=== PATIENT | male | born 1955 | race Caucasian/White ===

== ENCOUNTER 2017-12-05 15:33 | Inpatient (IN) | payer OTHER ==
[~2017-12-05] VITALS: Ht 182.9 cm; Wt 131.4 kg
[2017-12-21 09:16] VITALS: BP 150/66; PULSE 60; TEMP 97.7
[2017-12-21 10:09] LABS: BASO % 0.5 % (0.0-2.0); EOS # 0.1 (0.0-0.7); EOS % 1.8 % (0-4.0); GRAN # 3.9 (1.4-6.5); HEMATOCRIT 37.2 % (42.0-52.0); HEMOGLOBIN 12.8 g/dl (13.5-18.0); LYMPH # 1.5 (1.2-3.4); LYMPH % 23.8 % (20.0-51.0); MEAN CELL VOLUME 91 fl (80.0-100.0); MEAN CORPUSCULAR HEMOGLOBIN 31 pg (27.0-31.0); MEAN CORPUSCULAR HGB CONC 34 g/dl (33.0-37.0); MEAN PLATELET VOLUME 9.9 fl (7.4-10.4); MONO # 0.6 (0.1-0.6); MONO % 9.7 % (1.7-9.3); PLATELET COUNT 233 K/mm3 (130-400); RED BLOOD COUNT 4.07 M/mm3 (4.20-5.60)
[2017-12-21 10:10] LABS: INR 1.3 (0.8-3.0); PROTHROMBIN TIME 14.7 SECONDS (9.7-12.8)
[2017-12-21 10:16] LABS: ALBUMIN 4.1 gm/dL (3.5-5.0); BILIRUBIN,TOTAL 0.9 mg/dL (0.0-1.0); CREATININE, serum 0.72 mg/dL (0.66-1.25); MAGNESIUM 1.9 mg/dL (1.6-2.3); POTASSIUM 4.5 mmol/L (3.4-5.0); TOTAL PROTEIN 7.3 gm/dL (6.4-8.2)
[2017-12-21] MEDS ORDERED: TOPROL XL 25MG25 MG (10:19)
[2017-12-21] MEDS ORDERED: TOPROL XL 25MG25 MG PO (10:20)
[2017-12-21] MEDS ORDERED: CRESTOR20 MG PO (10:22)
[2017-12-21] MEDS ORDERED: ELIQUIS 5MG PO (10:22)
[2017-12-21] MEDS ORDERED: HYDRODIURIL50 MG PO (10:24)
[2017-12-21 11:43] VITALS: BP 129/69; PULSE 57; TEMP 97.4
[2017-12-21 16:43] VITALS: BP 120/74; PULSE 53; TEMP 97.9
[2017-12-21 20:53] VITALS: BP 120/71; PULSE 51; TEMP 97.6
[2017-12-22] VITALS (7 sets, daily range): BP systolic 94–114; BP diastolic 50–69; PULSE 47–55; TEMP 97.4–97.9
[2017-12-22 07:31] LABS: BASO % 0.7 % (0.0-2.0); EOS # 0.2 (0.0-0.7); EOS % 2.8 % (0-4.0); GRAN # 3.3 (1.4-6.5); GRAN % 58.2 % (42.2-75.2); HEMATOCRIT 37.7 % (42.0-52.0); HEMOGLOBIN 12.9 g/dl (13.5-18.0); LYMPH # 1.6 (1.2-3.4); LYMPH % 28.8 % (20.0-51.0); MEAN CELL VOLUME 92 fl (80.0-100.0); MEAN CORPUSCULAR HEMOGLOBIN 32 pg (27.0-31.0); MEAN CORPUSCULAR HGB CONC 34 g/dl (33.0-37.0); MEAN PLATELET VOLUME 10.2 fl (7.4-10.4); MONO # 0.5 (0.1-0.6); MONO % 9.1 % (1.7-9.3); PLATELET COUNT 226 K/mm3 (130-400); REDCELL DISTRIBUTION WIDTH-CV 13.2 % (11.5-14.5)
[2017-12-22 07:57] LABS: CALCIUM 8.8 mg/dL (8.4-10.2); CREATININE, serum 0.67 mg/dL (0.66-1.25); MAGNESIUM 2.1 mg/dL (1.6-2.3); POTASSIUM 4.2 mmol/L (3.4-5.0)
[2017-12-23 03:57] VITALS: BP 106/72; PULSE 44; TEMP 97.6
[2017-12-23 07:41] LABS: BASO % 0.6 % (0.0-2.0); EOS # 0.2 (0.0-0.7); EOS % 2.6 % (0-4.0); GRAN # 3.9 (1.4-6.5); GRAN % 60.2 % (42.2-75.2); HEMOGLOBIN 13.9 g/dl (13.5-18.0); LYMPH # 1.8 (1.2-3.4); LYMPH % 27.8 % (20.0-51.0); MEAN CELL VOLUME 91 fl (80.0-100.0); MEAN CORPUSCULAR HEMOGLOBIN 31 pg (27.0-31.0); MEAN CORPUSCULAR HGB CONC 34 g/dl (33.0-37.0); MEAN PLATELET VOLUME 10.4 fl (7.4-10.4); MONO # 0.6 (0.1-0.6); MONO % 8.6 % (1.7-9.3); PLATELET COUNT 262 K/mm3 (130-400); REDCELL DISTRIBUTION WIDTH-CV 13.1 % (11.5-14.5)
[2017-12-23 07:54] LABS: CALCIUM 9.1 mg/dL (8.4-10.2); CREATININE, serum 0.71 mg/dL (0.66-1.25); MAGNESIUM 2.1 mg/dL (1.6-2.3); POTASSIUM 4.2 mmol/L (3.4-5.0)
[2017-12-23 08:16] VITALS: BP 111/65; PULSE 51; TEMP 98.2
[2017-12-23] MEDS ORDERED: BETAPACE 80MG80 MG PO (10:57)
== END 2017-12-23 11:50 | disposition home or self-care (01) | DRG 310 ==
LOC: MEDICAL 12-21 07:53
PROVIDERS: Internal Medicine Cardiovascular Disease
DX: I48.0 Paroxysmal atrial fibrillation (principal); I25.10 Atherosclerotic heart disease of native coronary artery without angina pectoris; Z79.01 Long term (current) use of anticoagulants

== ENCOUNTER 2019-03-26 09:34 | Day surgery (SDC) | payer OTHER ==
[~2019-03-26] VITALS: Ht 180.3 cm; Wt 132.0 kg
[~2019-03-26 09:34] MED LIST: BETAPACE 80MG80 MG PO; CRESTOR20 MG PO; ELIQUIS 5MG PO; HYDRODIURIL50 MG PO; TOPROL XL 25MG25 MG; TOPROL XL 25MG25 MG PO
[2019-03-26] MEDS ORDERED: MICARDIS HCT 251 TAB PO (09:58)
[2019-03-26 10:02] VITALS: BP 120/76; PULSE 53; TEMP 98.3
[2019-03-26] MEDS ORDERED: BETAPACE240 MG PO (10:16)
--- NOTE | 2019-03-26 10:30 | NUR ---
CV cancelled per Dr. Gipson, pt is in SR. Pt discharged per ambulation with .
== END 2019-03-26 10:31 | disposition home or self-care (01) ==
LOC: COL.CAR 09:34
DX: I48.0 Paroxysmal atrial fibrillation (principal); Z53.8 Procedure and treatment not carried out for other reasons; I08.3 Combined rheumatic disorders of mitral, aortic and tricuspid valves; I10 Essential (primary) hypertension; E78.2 Mixed hyperlipidemia; Z79.01 Long term (current) use of anticoagulants

== ENCOUNTER 2019-04-02 13:35 | Emergency (ER) | payer OTHER ==
[~2019-04-02] VITALS: Ht 180.3 cm; Wt 131.4 kg
[~2019-04-02 13:35] MED LIST changes: +BETAPACE240 MG PO; +MICARDIS HCT 251 TAB PO
[2019-04-02 14:12] VITALS: TEMP 98.8
[2019-04-02 15:03] LABS: BASO # 0.1 (0.0-0.2); BASO % 0.3 % (0.0-2.0); EOS % 0.1 % (0-4.0); GRAN # 16.3 (1.4-6.5); GRAN % 82.2 % (42.2-75.2); HEMATOCRIT 41.7 % (42.0-52.0); LYMPH # 1.8 (1.2-3.4); LYMPH % 9.1 % (20.0-51.0); MEAN CELL VOLUME 93 fl (80.0-100.0); MEAN CORPUSCULAR HEMOGLOBIN 31 pg (27.0-31.0); MEAN CORPUSCULAR HGB CONC 34 g/dl (33.0-37.0); MEAN PLATELET VOLUME 11.5 fl (7.4-10.4); MONO # 1.5 (0.1-0.6); MONO % 7.4 % (1.7-9.3); PLATELET COUNT 216 K/mm3 (130-400); RED BLOOD COUNT 4.49 M/mm3 (4.20-5.60); REDCELL DISTRIBUTION WIDTH-CV 13.2 % (11.5-14.5)
[2019-04-02 15:04] LABS: COLLECTION METHOD CLEAN CATCH
[2019-04-02 15:07] LABS: ALANINE AMINOTRANSFERASE 23 U/L (21-72); ALBUMIN 4.3 gm/dL (3.5-5.0); ALKALINE PHOSPHATASE 69 U/L (50-136); ANION GAP 9 mmol/L (7-16); AST,SGOT 35 U/L (15-37); BILIRUBIN,TOTAL 2.7 mg/dL (0.0-1.0); BLOOD UREA NITROGEN 20 mg/dL (9-20); CALCIUM 9.2 mg/dL (8.4-10.2); CARBON DIOXIDE 31 mmol/L (22-30); CHLORIDE 97 mmol/L (98-107); CREATININE, serum 0.95 (0.66-1.25); GLUCOSE 111 mg/dL (74-106); MAGNESIUM 1.7 mg/dL (1.6-2.3); POTASSIUM 4.1 mmol/L (3.4-5.0); SODIUM 137 mmol/L (137-145)
[2019-04-02 15:15] LABS: MUCOUS Present /lpf; PH 5 (5-8); SQUAMOUS EPITHELIAL None Seen /hpf; URINE APPEARANCE Cloudy; URINE BACTERIA Occasional /hpf; URINE BILIRUBIN Negative (NEGATIVE); URINE BLOOD 2+ (NEGATIVE); URINE COLOR Amber; URINE GLUCOSE Negative (NEGATIVE); URINE KETONE Negative (NEGATIVE); URINE LEUKOCYTE ESTERASE 2+ (NEGATIVE); URINE NITRATE Negative (NEGATIVE); URINE PROTEIN(semi-quant) 1+ (NEGATIVE); URINE RBC 20-50 /hpf; URINE UROBILINOGEN >=4.0 mg/dL (NEGATIVE)
[2019-04-02 15:20] LABS: TROPONIN-I < 0.012 ng/mL (0.000-0.035)
[2019-04-02 17:50] VITALS: BP 106/78; PULSE 102
== END 2019-04-02 17:50 | disposition short-term general hospital (02) ==
LOC: COL.ER 13:35
PROVIDERS: Emergency Medicine
DX: A41.9 Sepsis, unspecified organism (principal); N39.0 Urinary tract infection, site not specified; I48.20 Chronic atrial fibrillation, unspecified; I10 Essential (primary) hypertension; E78.5 Hyperlipidemia, unspecified; Z90.89 Acquired absence of other organs; Z87.891 Personal history of nicotine dependence; Z79.01 Long term (current) use of anticoagulants
CPT/HCPCS: A4216; J0696; J7030